=== PATIENT | male | born 1955 | race Caucasian/White ===

== ENCOUNTER 2017-03-05 13:31 | Emergency (ER) | payer OTHER ==
[~2017-03-05] VITALS: Ht 180.3 cm; Wt 77.1 kg
[2017-03-05 14:08] LABS: Basophils # (auto) 0.1 uL; Basophils % (auto) 0.9 % (0.0-2.0); CONDITION Y; Eosinophils # (auto) 0.3 uL; Hematocrit 46.5 % (41.0-53.0); Hemoglobin 16.3 g/dL (13.5-17.5); Lymphocytes # (auto) 1.7 uL; Lymphocytes % (auto) 20.4 % (10.0-50.0); Mean Corpuscular Hemoglobin 32.8 pg (28.0-32.0); Mean Corpuscular Volume 93.6 fL (80.0-100.0); Mean Platelet Volume 8.1 fL (7.4-10.4); Monocytes # (auto) 0.4 uL; Monocytes % (auto) 4.6 % (0.0-12.0); Neutrophils % (auto) 70.1 % (37.0-80.0); Platelet Count (auto) 282 10^3/uL (140-450); Red Cell Distribution Width 13.2 % (11.6-16.0); White Blood Cell 8.5 10^3/uL (4.4-10.8)
[2017-03-05 14:31] LABS: Albumin 3.8 g/dL (3.4-5.0); BUN/Creatinine Ratio 9.3; Bilirubin, Total 0.4 mg/dL (0.2-1.0); Calcium 9.1 mg/dL (8.5-10.1); Potassium 4.2 mmol/L (3.5-5.1); Total Protein 7.1 g/dL (6.4-8.2)
[2017-03-05] MEDS: KETOROLAC TROMETH 30 MG/ML 1ML VIAL IV ONE ×2 (15:05→16:08)
[2017-03-05] MEDS: ONDANSETRON HCL 4 MG/2 ML VIAL IV ONE ×2 (15:08→16:05)
[2017-03-05] MEDS ORDERED: SODIUM CHLORIDE 0.9% 1,000 ML IV ONE (15:28)
[2017-03-05 16:48] LABS: Urine Bilirubin Negative (Negative); Urine Blood Negative /uL (Negative); Urine Color Yellow (Yellow); Urine Glucose Normal (Normal); Urine Ketone Negative (Negative); Urine Nitrite Negative (Negative); Urine RBC 1 /hpf (0 - 3); Urine Urobilinogen Normal (Negative)
[2017-03-05 17:58] VITALS: BP 129/89
== END 2017-03-05 18:49 | disposition home or self-care (01) ==
LOC: ER 13:33
DX: T67.5XXA Heat exhaustion, unspecified, initial encounter (principal); E78.5 Hyperlipidemia, unspecified; I10 Essential (primary) hypertension; F17.210 Nicotine dependence, cigarettes, uncomplicated; R51 Headache
CPT/HCPCS: 36415; 71020; 80053; 81001; 85025; 93005; 96361; 96374; 96375; 99285; J1885; J2405; J7030

== ENCOUNTER 2023-06-30 05:55 | Emergency (ER) | payer OTHER ==
[~2023-06-30] VITALS: Ht 177.8 cm; Wt 72.3 kg
[2023-06-30 06:50] LABS: Basophils # (auto) 0.1 10 ^3/uL (0-0.2); Eosinophils # (auto) 0.2 10 ^3/uL (0-0.8); Eosinophils % (auto) 2.2 % (0.0-7.0); Hematocrit 44.4 % (41.0-53.0); Hemoglobin 15.4 g/dL (13.5-17.5); Lymphocytes # (auto) 1.5 10 ^3/uL (0.4-5.4); Mean Corpuscular Hemoglobin 32.2 pg (28.0-32.0); Mean Corpuscular Hgb Conc. 34.7 g/dL (32.0-36.0); Monocytes # (auto) 0.4 10 ^3/uL (0-1.3); Monocytes % (auto) 4.4 % (0.0-12.0); Neutrophils # (auto) 7.8 10 ^3/uL (1.6-8.6); Neutrophils % (auto) 77.4 % (37.0-80.0); Nucleated Red Blood Cells % 0.1 %; Red Blood Cells 4.78 10^6/uL (4.5-5.90); Red Cell Distribution Width 13.5 % (11.8-14.3)
[2023-06-30 07:12] LABS: Urine Bacteria NONE SEEN /hpf (None Seen); Urine Blood 2+ /uL (Negative); Urine Clarity Clear (Clear); Urine Color Straw (Yellow); Urine Protein, UAD Negative (Negative); Urine Specific Gravity 1.009 (1.001-1.035); Urine Urobilinogen Normal (Negative); Urine WBC <1 /hpf (0 - 3)
[2023-06-30 07:33] LABS: Alanine Aminotransferase 14 U/L (7-40); Albumin 4.3 g/dL (3.2-4.8); Alkaline Phosphatase 91 U/L (46-116); Anion Gap 7 (5-15); Aspartate Aminotransferase 15 U/L (13-40); BUN/Creatinine Ratio 9.2 (10.0-20.0); Bilirubin, Total 0.6 mg/dL (0.2-1.0); Blood Urea Nitrogen 12 mg/dL (9-23); Calcium 9.2 mg/dL (8.7-10.4); Carbon Dioxide 26 mmol/L (20-30); Chloride 108 mmol/L (98-107); Glucose 135 mg/dL (74-106); Potassium 4.1 mmol/L (3.5-5.1); Sodium 141 mmol/L (136-145)
[2023-06-30 07:34] LABS: Total Protein 6.4 g/dL (5.7-8.2)
[2023-06-30] MEDS ORDERED: BACDST PO (09:07)
[2023-06-30 10:58] VITALS: BP 129/78; PULSE 87; RESP 16; TEMP 98.5; O2SAT 98
== END 2023-06-30 11:01 | disposition home or self-care (01) ==
LOC: ER 05:55
DX: R33.9 Retention of urine, unspecified (principal); I10 Essential (primary) hypertension; E78.5 Hyperlipidemia, unspecified; F17.210 Nicotine dependence, cigarettes, uncomplicated
CPT/HCPCS: 36415; 51702; 74176; 80053; 81001; 85025

== ENCOUNTER 2024-11-06 14:27 | Emergency (ER) | payer OTHER ==
[~2024-11-06] VITALS: Ht 177.8 cm; Wt 74.0 kg
[~2024-11-06 14:27] MED LIST: BACDST PO
--- NOTE | 2024-11-06 14:41 | ED.PDOC ---
History of Present Illness HPI Comments 69-year-old male brought by paramedics from home because of dizziness chest discomfort which started about an hour ago. Patient was getting up to walk when he started feeling dizzy spell like he was going to pass out. Chest discomfort does not radiate to the shoulder to the back. Patient blood pressure heart rate was within normal limits in the field. He does have a history of hypertension hyper cholesterol prostate cancer in the early stages. Continues to smoke cigarettes. Denies any other symptoms. Time Seen by MD: 14:31 Primary Care Provider: MATEUSZ Reviewed Notes: Nurses Notes, Medications, Allergies Allergies: Coded Allergies: NO KNOWN ALLERGIES (Unverified , 04/03/16) Home Meds Active Scripts Sulfamethoxazole W/Trimethopri (Bactrim Ds Tablet) 1 Tab Tb, 1 TAB PO BID for 7 Days, #14 TAB Prov:JONES CONWAY MD 06/30/23 Information Source: Patient, Emergency Med Personnel Mode of Arrival: EMS Severity: Moderate Timing: Hours Duration: Since onset Past Medical History PAST MEDICAL HISTORY: High Lipids, HTN Surgical History: Denies all surgeries Family History Family History: Unknown Social History Smoker: Cigarettes, Less Than 1 Pack/Day Alcohol: Denies ETOH Use Drugs: Denies Drug Use Lives In: Home Constitutional: denies: chills, diaphoresis, fatigue, fever, malaise, sweats, weakness, others EENTM: denies: blurred vision, double vision, ear bleeding, ear discharge, ear drainage, ear pain, ear ringing, eye pain, eye redness, hearing loss, mouth pain, mouth swelling, nasal discharge, nose bleeding, nose congestion, nose pain, photophobia, tearing, throat pain, throat swelling, voice changes, others Respiratory: denies: cough, hemoptysis, orthopnea, SOB at rest, shortness of breath, SOB with excertion, stridor, wheezing, others Cardiovascular: reports: chest pain; denies: dizzy spells, diaphoresis, Dyspnea on exertion, edema, irregular heart beat, left arm pain, lightheadedness, palpitations, PND, syncope, others Gastrointestinal: denies: abdomen distended, abdominal pain, blood streaked bowels, constipated, diarrhea, dysphagia, difficulty swallowing, hematemesis, melena, nausea, poor appetite, poor fluid intake, rectal bleeding, rectal pain, vomiting, others Genitourinary: denies: burning, dysuria, flank pain, frequency, hematuria, incontinence, penile discharge, penile sore, pain, testicle pain, testicle swelling, urgency, others Neurological: reports: dizziness; denies: fainting, headache, left sided numbness, left sided weakness, numbness, paresthesia, pre-existing deficit, right sided numbness, right sided weakness, seizure, speech problems, tingling, tremors, weakness, others Musculoskeletal: denies: back pain, gout, joint pain, joint swelling, muscle pain, muscle stiffness, neck pain, others Integumetry: denies: bruises, change in color, change in hair/nails, dryness, laceration, lesions, lumps, rash, wounds, others Allergic/Immunocompromised: denies: Difficulty Healing, Frequent Infections, Hives, Itching, others Hematologic/Lymphatic: denies: anemia, blood clots, easy bleeding, easy bruis ing, swollen glands, others Endocrine: denies: excessive hunger, excessive sweating, excessive thirst, exc essive urination, flushing, intolerance to cold, intolerance to heat, unexplained weight gain, unexplained weight loss, others Psychiatric: denies: anxiety, bipolar disorder, depression, hopeless, panic disorder, schizophrenia, sleepless, suicidal, others Physical Exam General Appearance: Moderate Distress HEENT: Normal ENT Inspection, Pharynx Normal, TMs Normal Neck: Full Range of Motion, Non-Tender, Normal, Normal Inspection Respiratory: Chest Non-Tender, Lungs Clear, No Accessory Muscle Use, No Respiratory Distress, Normal Breath Sounds Cardiovascular: No Edema, No JVD, No Murmur, No Gallop, Normal Peripheral Puls es, Regular Rate/Rhythm Breast Exam: Deferred Gastrointestinal: No Organomegaly, Non Tender, No Pulsatile Mass, Normal Bowel Sounds, Soft Genitalia: Deferred Pelvic: Deferred Rectal: Deferred Extremities: No calf tenderness, Normal capillary refill, Normal inspection, Normal range of motion, Non-tender, No pedal edema Musculoskeletal : Apperance: Normal Neurologic: Alert, fish smoker II-XII nml as Tested, No Motor Deficits, Normal Affect, Normal Mood, No Sensory Deficits Cerebellar Function: NOT DONE Reflexes: NOT DONE Skin: Dry, Normal Color, Warm Peripheral Pulses: 3+ Radial (R), 3+ Radial (L) Lymphatic: No Adenopathy Was a procedure done? Was a procedure done?: No Differential Dx Considerations may include: Anemia Electrolyte imbalance X-Ray, Labs, Meds, VS Vital Signs Date Time Temp Pulse Resp B/P (MAP) Pulse Ox O2 Delivery O2 Flow Rate FiO2 11/06/24 16:16 97.8 65 18 120/78 (92) 97 97.8 11/06/24 15:31 62 17 92/52 (65) 96 11/06/24 14:45 92/51 11/06/24 14:36 97.6 68 16 116/75 (89) 100 97.6 11/06/24 14:30 62 Lab Test 11/06/24 16:14 11/06/24 15:10 Range/Units Troponin I High Sensitivity Pending 3 L </=54 ng/L White Blood Count 11.3 H 4.4-10.8 10^3/uL Red Blood Count 4.64 4.5-5.90 10^6/uL Hemoglobin 15.0 13.5-17.5 g/dL Hematocrit 43.7 41.0-53.0 % Mean Corpuscular Volume 94.2 80.0-100.0 fL Mean Corpuscular Hemoglobin 32.3 H 28.0-32.0 pg Mean Corpuscular Hemoglobin Concent 34.3 32.0-36.0 g/dL Red Cell Distribution Width 13.2 11.8-14.3 % Platelet Count 214 140-450 10^3/uL Mean Platelet Volume 7.4 6.9-10.8 fL Neutrophils (%) (Auto) 79.5 37.0-80.0 % Lymphocytes (%) (Auto) 13.1 10.0-50.0 % Monocytes (%) (Auto) 4.9 0.0-12.0 % Eosinophils (%) (Auto) 1.9 0.0-7.0 % Basophils (%) (Auto) 0.6 0.0-2.0 % Neutrophils # (Auto) 9.0 H 1.6-8.6 10 ^3/uL Lymphocytes # (Auto) 1.5 0.4-5.4 10 ^3/uL Monocytes # (Auto) 0.6 0-1.3 10 ^3/uL Eosinophils # (Auto) 0.2 0-0.8 10 ^3/uL Basophils # (Auto) 0.1 0-0.2 10 ^3/uL Nucleated Red Blood Cells 0.0 % Sodium Level 141 136-145 mmol/L Potassium Level 4.4 3.5-5.1 mmol/L Chloride Level 106 98-107 mmol/L Carbon Dioxide Level 29 20-31 mmol/L Anion Gap 6 5-15 Blood Urea Nitrogen 15 9-23 mg/dL Creatinine 1.40 H 0.700-1.30 mg/dL Glomerular Filtration Rate Calc 54 >90 mL/min BUN/Creatinine Ratio 10.7 10.0-20.0 Serum Glucose 120 H 74-106 mg/dL Calcium Level 9.8 8.7-10.4 mg/dL Patient alert. Complaining of chest pain dizziness. Vitals stable. Answering questions. Continues to smoke cigarettes. Counseled patient effects of smoking cigarettes for 15 minutes. EKG does show premature ventricular contraction. Echocardiogram. Cardiology consultation. Was given aspirin. Was given nitro. Blood pressure within normal limits. Reviewed his history. Explained to the patient. Continue cardiac monitoring. Spoke with [facility] physician. He will be following the patient. Time of 1ST Reevaluation: 14:39 Reevaluation 1ST: Unchanged Patient Education/Counseling: Diagnosis, Treatment, Prognosis Family Education/Counseling: No Family Present Departure 1 Departure Time of Disposition: 14:40 Impression: Primary Impression: Chest pain of unknown etiology Additional Impression: Autonomic disorder Disposition: ADMITTED INPATIENT Admit to: Med Surg Condition: Guarded Critical Care Note Critical Care Time?: Yes (45 min-critical care time only) Stability Stability form required: No Heart Score Heart Score: Heart Score Response (Comments) Value History Slightly Suspicious 0 EKG Normal 0 Age >65 2 Risk Factors >3 or Hx ASHD 2 Troponin Normal limit 0 Total 4 JONES CONWAY MD Nov 06, 2024 14:41
[2024-11-06] MEDS: NITROGLYCERIN 0.4 MG SL TAB SL ONE (14:45)
--- NOTE | 2024-11-06 15:23 | DVH ---
CHEST RADIOGRAPH Indication: sob Technique: Single frontal view of the chest was obtained COMPARISON: None FINDINGS: Lines and Tubes: None Lungs: Clear Pleura: No effusion. No pneumothorax. Cardiomediastinal contours: Unremarkable Bones: Unremarkable IMPRESSION: No acute disease.
[2024-11-06 15:26] LABS: Basophils # (auto) 0.1 10 ^3/uL (0-0.2); Basophils % (auto) 0.6 % (0.0-2.0); Eosinophils # (auto) 0.2 10 ^3/uL (0-0.8); Eosinophils % (auto) 1.9 % (0.0-7.0); Hematocrit 43.7 % (41.0-53.0); Lymphocytes # (auto) 1.5 10 ^3/uL (0.4-5.4); Lymphocytes % (auto) 13.1 % (10.0-50.0); Mean Corpuscular Hemoglobin 32.3 pg (28.0-32.0); Mean Corpuscular Hgb Conc. 34.3 g/dL (32.0-36.0); Mean Corpuscular Volume 94.2 fL (80.0-100.0); Monocytes # (auto) 0.6 10 ^3/uL (0-1.3); Monocytes % (auto) 4.9 % (0.0-12.0); Neutrophils % (auto) 79.5 % (37.0-80.0); Platelet Count (auto) 214 10^3/uL (140-450); Red Blood Cells 4.64 10^6/uL (4.5-5.90); Red Cell Distribution Width 13.2 % (11.8-14.3); White Blood Cell 11.3 10^3/uL (4.4-10.8)
[2024-11-06 15:34] LABS: Chloride 106 mmol/L (98-107); Potassium 4.4 mmol/L (3.5-5.1); Sodium 141 mmol/L (136-145)
[2024-11-06 15:35] LABS: Anion Gap 6 (5-15); Carbon Dioxide 29 mmol/L (20-31)
[2024-11-06 15:36] LABS: Calcium 9.8 mg/dL (8.7-10.4)
[2024-11-06] MEDS: ASPirin 325 MG TAB PO ONE (15:36)
[2024-11-06 15:41] LABS: BUN/Creatinine Ratio 10.7 (10.0-20.0); Blood Urea Nitrogen 15 mg/dL (9-23); Glucose 120 mg/dL (74-106)
[2024-11-06] MEDS: SODIUM CHLORIDE 0.9% 1,000 ML IV ONE (18:45)
--- NOTE | 2024-11-06 20:09 | ECG ---
[facility] Test Date: 2024-11-06 Test Time: 14:30:05 Pat Name: OPAL PARK Department: ED Room: Gender: M Patrol Mother: JONEL : 1955 Requested By: JONES CONWAY Order Number: [id number] Reading MD: Elias Rocha Measurements Intervals [place] Rate: 62 P: 48 NV: 144 QRS: 40 QRSD: 93 T: 90 QT: 444 QTc: 451 Interpretive Statements Sinus arrhythmia Ventricular bigeminy Nonspecific T abnormalities, lateral leads Electronically Signed On 11-09-2024 13:24:34 PDT by Elias Rocha Please click the below link to view image of tracing.
[2024-11-06 21:18] VITALS: BP 140/115; PULSE 73; RESP 16; TEMP 97.7; O2SAT 97
[2024-11-06] MEDS ORDERED: AUG875T PO (22:39)
--- NOTE | 2024-11-06 22:41 | DVHDS2 ---
Discharge Summary Date of Admission Date of Discharge: Nov 06, 2024 Labs/Diagnostic Data: Laboratory Results Test 11/06/24 19:01 11/06/24 15:10 Troponin I High Sensitivity 3 ng/L (</=54) White Blood Count 11.3 10^3/uL (4.4-10.8) Red Blood Count 4.64 10^6/uL (4.5-5.90) Hemoglobin 15.0 g/dL (13.5-17.5) Hematocrit 43.7 % (41.0-53.0) Mean Corpuscular Volume 94.2 fL (80.0-100.0) Mean Corpuscular Hemoglobin 32.3 pg (28.0-32.0) Mean Corpuscular Hemoglobin Concent 34.3 g/dL (32.0-36.0) Red Cell Distribution Width 13.2 % (11.8-14.3) Platelet Count 214 10^3/uL (140-450) Mean Platelet Volume 7.4 fL (6.9-10.8) Neutrophils (%) (Auto) 79.5 % (37.0-80.0) Lymphocytes (%) (Auto) 13.1 % (10.0-50.0) Monocytes (%) (Auto) 4.9 % (0.0-12.0) Eosinophils (%) (Auto) 1.9 % (0.0-7.0) Basophils (%) (Auto) 0.6 % (0.0-2.0) Neutrophils # (Auto) 9.0 10 ^3/uL (1.6-8.6) Lymphocytes # (Auto) 1.5 10 ^3/uL (0.4-5.4) Monocytes # (Auto) 0.6 10 ^3/uL (0-1.3) Eosinophils # (Auto) 0.2 10 ^3/uL (0-0.8) Basophils # (Auto) 0.1 10 ^3/uL (0-0.2) Nucleated Red Blood Cells 0.0 % Sodium Level 141 mmol/L (136-145) Potassium Level 4.4 mmol/L (3.5-5.1) Chloride Level 106 mmol/L (98-107) Carbon Dioxide Level 29 mmol/L (20-31) Anion Gap 6 (5-15) Blood Urea Nitrogen 15 mg/dL (9-23) Creatinine 1.40 mg/dL (0.700-1.30) Glomerular Filtration Rate Calc 54 mL/min (>90) BUN/Creatinine Ratio 10.7 (10.0-20.0) Serum Glucose 120 mg/dL (74-106) Calcium Level 9.8 mg/dL (8.7-10.4) Other Laboratory Tests 11/06/24 15:10 Brief Hx & Hospital Course: Patient is a 69-year-old male with past medical history of hypertension, prostate cancer with chronic Rivera, tobacco dependence who presented with complaints of dizziness with near syncope and an episode of short lasting chest pain. Patient notes that he got up today and suddenly felt dizzy. He denies syncopized or losing consciousness. He notes that he had an episode of chest pain which lasted a few seconds. He described the chest pain as sharp, nonradiating and resolving on its own. He denies having chest pain with any exertion. He denies having any history of ND, cardiac stents. Patient notes he continues to smoke and has been smoking for several decades. He denies any alcohol or drug use. Patient had called EMS and was given 500 cc bolus of IV fluids. Presented to the ER with vitals notable for SBP in the 90s that improved with IV fluids. Patient was given 1.5 L of IV fluids. Orthostats were done which were notable for systolic blood pressure dropping from 144-119 from sitting to standing. Patient did not have any dizziness or imbalance. He was able to ambulate independently. Subsequent vitals were taken and his blood pressure was noted to rise to the 140s systolic blood pressure. Patient had a CBC which was notable for mild leukocytosis of 11.3 without any signs of fever. BMP was notable for elevated creatinine of 1.4. Troponin was done which was nonelevated x 3. EKG was done which showed sinus rhythm. No ST changes noted. Chest x-ray was done which did not acute disease. Patient was monitored for several hours. He was noted to feel comfortable without any signs of distress. Patient was advised to decrease his losartan dose in half until follow up with his PCP. Patient notes that he takes multiple BP medications. Patient also notes that he drinks 3 energy drinks a day and does not stay well hydrated. He has a chronic rivera catheter and bag. Patient's vitals were stable prior to discharge. He was prescribed Augmentin for 5 days for concern of UTI given chronic rivera. Patient is follow up with cardiology and his PCP. Terry to arrange follow up appointments. Condition at Discharge: Good Final Diagnosis/Problems List Dizziness Secondary Diagnosis: Chronic Rivera Catheter Prostate Cancer Tobacco Dependence ASAD vs CKD Discharge Disposition: Home Discharge Instruct/Medications Diet: Cardiac 2g Na,low cholest Activity: No Restrictions, As Tolerated Follow Up/Referral: Follow up with cardiology. Terry RUTHERFORD will arrange appointment. Discharge Statement: "Patient was advised to return to the ER or call 911 if any headaches, dizziness, shortness of breath, chest pain, abdominal pain, bleeding, fevers, or worsening of medical condition. Patient was counseled about treatment plan, medications, possible side effects, patientverbalized understanding. All questions were answered to the best of my ability. This discharge took greater then 30 minutes in planning, reviewing documentation, counseling the patient, and discussing with other team members." ASSESSMENT ASSESSMENT Assessment Dizziness KARRI STEVENS DO Nov 06, 2024 22:41
== END 2024-11-07 01:42 | disposition left against medical advice (07) ==
LOC: ER 14:27 → EDBD 14:27 → ER 11-07 01:42
DX: R07.89 Other chest pain (principal); G90.9 Disorder of the autonomic nervous system, unspecified; M25.512 Pain in left shoulder; I10 Essential (primary) hypertension; E78.5 Hyperlipidemia, unspecified; F17.210 Nicotine dependence, cigarettes, uncomplicated; Z85.46 Personal history of malignant neoplasm of prostate
CPT/HCPCS: 36415; 71045; 80048; 84484; 85025; 93005; 96360; 99283; J7030